=== PATIENT | male | born 2000 | race Caucasian/White ===

== ENCOUNTER 2021-12-03 17:06 | Emergency (ER) | payer SELFPAY ==
[2021-12-03 19:45] VITALS: BP 116/81
== END 2021-12-04 01:45 | disposition left against medical advice (07) ==
LOC: ED 17:06
DX: T14.8XXD Other injury of unspecified body region, subsequent encounter (principal); Z53.21 Procedure and treatment not carried out due to patient leaving prior to being seen by health care provider